=== PATIENT | female | born 1930 | race Caucasian/White ===

== ENCOUNTER 2016-11-20 08:21 | Emergency (ER) | payer MEDICARE ==
[~2016-11-20] VITALS: Ht 149.9 cm; Wt 68.7 kg
[~2016-11-20 08:21] MED LIST: ACET325T21 PO; ASPI-496 PO; BRIM5DRO3 EACHEYE; ESCI20TA10 PO; HYDR25TA6 PO; LEVO25TA4 PO; PARO20TA4 PO; TIMO5DRO5 EACHEYE
[2016-11-20] MEDS ORDERED: SODIUM CHLORIDE FLUSH 10ML SYR IVF ONE (09:00)
[2016-11-20] MEDS ORDERED: SODIUM CHLORIDE 0.9% 1,000ML IVBOLUS ONE (09:00)
[2016-11-20 09:28] LABS: BLOOD UREA NITROGEN 13 mg/dL (7-18)
[2016-11-20 10:42] VITALS: BP 134/58
== END 2016-11-20 10:45 | disposition home or self-care (01) ==
LOC: ED 10:30
DX: J06.9 Acute upper respiratory infection, unspecified (principal); E03.9 Hypothyroidism, unspecified; E87.6 Hypokalemia; I10 Essential (primary) hypertension; Z95.0 Presence of cardiac pacemaker; Z88.6 Allergy status to analgesic agent
CPT/HCPCS: 36415; 71020; 80048; 82040; 83605; 85025; 87040; 93005; 96360; 99285; J7030

== ENCOUNTER → 2016-12-02 | Outpatient (CLI) | payer MEDICARE | END | disposition home or self-care (01) | LOC: LAB 13:17 | PROVIDERS: ATTEND Ophthalmology | DX: H47.012 Ischemic optic neuropathy, left eye (principal) | CPT/HCPCS: 36415; 85651; 86140 ==

== ENCOUNTER 2017-05-09 16:38 | Inpatient (IN) | payer MEDICARE ==
[~2017-05-09] VITALS: Ht 152.4 cm; Wt 70.9 kg
[2017-05-09] MEDS ORDERED: SODIUM CHLORIDE 0.9% 1,000ML IVBOLUS ONE (17:30)
[2017-05-09] MEDS ORDERED: SODIUM CHLORIDE FLUSH 10ML SYR IVF ONE (17:30)
[2017-05-09] MEDS ORDERED: PLEASE ENTER HEIGHT AND WEIGHT MC SCH (18:00)
[2017-05-09 18:18] LABS: HEMATOCRIT 40.3 % (34.6-47.8); HEMOGLOBIN 13.5 g/dL (11.7-16.4)
[2017-05-09 18:26] LABS: ASPARTATE AMINO TRANSFERASE 16 U/L (15-37); BLOOD UREA NITROGEN 24 mg/dL (7-18)
[2017-05-09 18:32] LABS: IS PT STATUS REG ER OR PRE ER? YES
[2017-05-09] MEDS ORDERED: LISI1TAB3 PO (19:05)
[2017-05-09] MEDS ORDERED: LATA2.5D3 EACHEYE (19:15)
[2017-05-09] MEDS ORDERED: POTA10CA PO (19:15)
[2017-05-09] MEDS ORDERED: ATOR40TA78 PO (19:15)
[2017-05-09] MEDS ORDERED: CYAN25009 PO (19:15)
[2017-05-09] MEDS ORDERED: CHOL2000 PO (19:15)
[2017-05-09] MEDS ORDERED: LOSA1TAB19 PO (19:15)
[2017-05-09] MEDS ORDERED: FURO20TA3 PO (19:15)
[2017-05-09] MEDS ORDERED: BRIN8DRO EACHEYE (19:15)
[2017-05-09] MEDS: SODIUM CHLORIDE 0.9% 1,000 ML IV SCH (19:20)
[2017-05-09] MEDS ORDERED: TEMAZEPAM 15 MG CAPSULE PO PRN (19:30)
[2017-05-09] MEDS ORDERED: ENOXAPARIN 40 MG/0.4 ML SQ SCH (19:30)
[2017-05-09] MEDS ORDERED: DOCUSATE 100 MG CAPSULE PO PRN (19:30)
[2017-05-09] MEDS ORDERED: hydrALAzine 20 MG/ML, 1ML IVPush PRN (19:30)
[2017-05-09] MEDS ORDERED: ENOXAPARIN 40 MG/0.4 ML ONE (20:34)
[2017-05-09] MEDS: ATORVASTATIN 40 MG TABLET PO SCH (21:00)
[2017-05-09] MEDS: BRIMONIDINE TARTRATE OPHTH 0.15%, 5ML EACHEYE SCH (21:00)
[2017-05-09] MEDS: LATANOPROST OPHTH 0.005%, 2.5ML EACHEYE SCH (21:00)
[2017-05-09 23:00] VITALS: BP 115/57
[2017-05-10 00:58] LABS: IS PT STATUS REG ER OR PRE ER? NO
[2017-05-10 03:58] VITALS: BP 109/65
[2017-05-10 06:27] LABS: HEMATOCRIT 36.2 % (34.6-47.8); HEMOGLOBIN 11.8 g/dL (11.7-16.4); WHITE BLOOD COUNT 7.4 x10^3/uL (3.4-10)
[2017-05-10 06:32] LABS: BLOOD UREA NITROGEN 19 mg/dL (7-18)
[2017-05-10 06:42] LABS: IS PT STATUS REG ER OR PRE ER? NO
[2017-05-10 06:54] VITALS: BP_SYST 119; BP_SYST 125; BP_DIAS 66; BP_DIAS 69; BP_DIAS 71
[2017-05-10] MEDS ORDERED: POTASSIUM CHLORIDE 20 MEQ TAB.ER.PRT PO ONE (07:05)
[2017-05-10] MEDS ORDERED: LOSARTAN 50MG TABLET PO SCH (09:00)
[2017-05-10] MEDS: LEVOTHYROXINE 25 MCG TABLET PO SCH (09:41)
[2017-05-10] MEDS: HYDROCHLOROTHIAZIDE 12.5 MG CAPSULE PO SCH (09:42)
[2017-05-10] MEDS: ASPIRIN 81 MG TABLET EC PO SCH (09:42)
[2017-05-10] MEDS: BRIMONIDINE TARTRATE OPHTH 0.15%, 5ML EACHEYE SCH ×2 (09:43→21:01)
[2017-05-10] MEDS ORDERED: OMNIPAQUE 350 MG/ML, 100ML BOTTLE ONE (11:25)
[2017-05-10 13:54] VITALS: BP 126/65
[2017-05-10 15:30] VITALS: BP_SYST 129; BP_SYST 133; BP_DIAS 68; BP_DIAS 69
[2017-05-10] MEDS: SODIUM CHLORIDE 0.9% 1,000 ML IV SCH (16:27)
[2017-05-10 19:00] VITALS: BP 138/64
[2017-05-10] MEDS ORDERED: ENOXAPARIN 30 MG/0.3 ML SQ SCH (19:30)
[2017-05-10 20:00] VITALS: BP_SYST 135; BP_SYST 154; BP_DIAS 63; BP_DIAS 65
[2017-05-10] MEDS: ATORVASTATIN 40 MG TABLET PO SCH (21:01)
[2017-05-10] MEDS: LATANOPROST OPHTH 0.005%, 2.5ML EACHEYE SCH (21:01)
[2017-05-11 02:00] VITALS: BP 124/59
[2017-05-11] MEDS: SODIUM CHLORIDE 0.9% 1,000 ML IV SCH (05:20)
[2017-05-11] MEDS: LEVOTHYROXINE 25 MCG TABLET PO SCH (05:32)
[2017-05-11 07:58] VITALS: BP 167/64
[2017-05-11] MEDS: HYDROCHLOROTHIAZIDE 12.5 MG CAPSULE PO SCH (08:49)
[2017-05-11] MEDS: ASPIRIN 81 MG TABLET EC PO SCH (08:49)
[2017-05-11] MEDS: BRIMONIDINE TARTRATE OPHTH 0.15%, 5ML EACHEYE SCH (08:49)
[2017-05-11] MEDS ORDERED: LOSARTAN 50MG TABLET PO SCH (09:00)
[2017-05-11 12:35] VITALS: BP 111/65
== END 2017-05-11 14:21 | disposition home or self-care (01) | DRG 73 ==
LOC: ED 19:20 → EDIP 19:21 → ED 19:35 → 4WST 23:01 → DCLOUNGE 05-11 13:49
PROVIDERS: ADMIT Surgery; ATTEND Surgery
PROC: 4B02XSZ Measurement of Cardiac Pacemaker, External Approach (ICD-10-PCS; principal; 2017-05-10)
DX: G90.9 Disorder of the autonomic nervous system, unspecified (principal); N17.0 Acute kidney failure with tubular necrosis; I11.0 Hypertensive heart disease with heart failure; I48.91 Unspecified atrial fibrillation; R55 Syncope and collapse; F33.0 Major depressive disorder, recurrent, mild; E03.9 Hypothyroidism, unspecified; E78.5 Hyperlipidemia, unspecified; H40.9 Unspecified glaucoma; Z96.651 Presence of right artificial knee joint; E87.6 Hypokalemia; F41.9 Anxiety disorder, unspecified; F03.90 Unspecified dementia, unspecified severity, without behavioral disturbance, psychotic disturbance, mood disturbance, and anxiety; M81.0 Age-related osteoporosis without current pathological fracture; Z80.49 Family history of malignant neoplasm of other genital organs; Z82.3 Family history of stroke; Z86.73 Personal history of transient ischemic attack (TIA), and cerebral infarction without residual deficits; Z95.0 Presence of cardiac pacemaker; Z88.1 Allergy status to other antibiotic agents; Z88.5 Allergy status to narcotic agent; Z90.49 Acquired absence of other specified parts of digestive tract
CPT/HCPCS: 36415; 70450; 71010; 71275; 80048; 80053; 81001; 82607; 82746; 83735; 83880; 84439; 84443; 84484; 85025; 85379; 87086; 93005; 93306; 96360; 96361; 96372; J1650; Q9967; J7030

== ENCOUNTER 2018-03-24 14:46 | Emergency (ER) | payer MEDICARE ==
[~2018-03-24] VITALS: Ht 152.4 cm; Wt 65.8 kg
[~2018-03-24 14:46] MED LIST changes: +ATOR40TA78 PO; +BRIN8DRO EACHEYE; +CHOL2000 PO; +CYAN25009 PO; +FURO20TA3 PO; +LATA2.5D3 EACHEYE; +LISI1TAB3 PO; +LOSA1TAB19 PO; +POTA10CA PO
[2018-03-24 14:52] VITALS: BP 103/56
[2018-03-24 15:23] LABS: BASOPHILS # (AUTO) 0.11 x10^3/uL (0-0.1); BASOPHILS % (AUTO) 1 % (0-1); EOSINOPHILS # (AUTO) 0.58 x10^3/uL (0-0.4); EOSINOPHILS % (AUTO) 5 % (1-7); LYMPHOCYTES # (AUTO) 2.14 x10^3/uL (1-3.4); LYMPHOCYTES % (AUTO) 20 % (22-44); MD NO; MEAN CORPUSCULAR HEMOGLOBIN 31.2 pg (27.0-34.8); MEAN CORPUSCULAR HGB CONC 33.9 g/dL (32.4-35.8); MEAN CORPUSCULAR VOLUME 92.1 fL (80-100); MEAN PLATELET VOLUME 8.9 fL (7.4-10.4); MONOCYTES # (AUTO) 0.81 x10^3/uL (0.2-0.8); MONOCYTES % (AUTO) 8 % (2-9); NEUTROPHILS # (AUTO) 7.09 x10^3/uL (1.8-6.8); NEUTROPHILS % (AUTO) 66 % (42-75); PLATELET COUNT 273 x10^3/uL (130-400); RED BLOOD COUNT 4.68 x10^6/uL (3.82-5.3); RED CELL DISTRIBUTION WIDTH 14.5 % (9.6-15.2)
[2018-03-24 15:32] LABS: ALBUMIN 3.4 g/dL (3.4-5.0); ANION GAP 10 mmol/L (5-15); CHLORIDE 109 mmol/L (98-107)
[2018-03-24 15:37] LABS: CREATININE 1.25 mg/dL (0.55-1.02); TROPONIN I < 0.015 ng/mL (0.000-0.045)
== END 2018-03-24 16:40 | disposition home or self-care (01) ==
LOC: ED 15:45
DX: J00 Acute nasopharyngitis [common cold] (principal); I11.0 Hypertensive heart disease with heart failure; I50.9 Heart failure, unspecified; I48.91 Unspecified atrial fibrillation; E07.9 Disorder of thyroid, unspecified; R05 Cough; Z95.0 Presence of cardiac pacemaker
CPT/HCPCS: 36415; 71046; 80048; 82040; 83605; 83880; 84484; 85025; 87040; 93005; 99285

== ENCOUNTER 2018-05-24 13:00 | Emergency (ER) | payer MEDICARE ==
[~2018-05-24] VITALS: Ht 144.8 cm; Wt 65.5 kg
[2018-05-24 14:34] LABS: ALBUMIN 3.5 g/dL (3.4-5.0); ANION GAP 9 mmol/L (5-15); CALCIUM 8.7 mg/dL (8.5-10.1); CHLORIDE 105 mmol/L (98-107); CREATININE 1.28 mg/dL (0.55-1.02)
[2018-05-24 14:38] LABS: TROPONIN I < 0.015 ng/mL (0.000-0.045)
[2018-05-24 14:47] LABS: MEAN CORPUSCULAR HEMOGLOBIN 30.7 pg (27.0-34.8); MEAN CORPUSCULAR HGB CONC 33.2 g/dL (32.4-35.8); MEAN CORPUSCULAR VOLUME 92.4 fL (80-100); MEAN PLATELET VOLUME 9.3 fL (7.4-10.4); PLATELET COUNT 217 x10^3/uL (130-400); RED BLOOD COUNT 4.78 x10^6/uL (3.82-5.3); RED CELL DISTRIBUTION WIDTH 14.1 % (9.6-15.2)
[2018-05-24 15:04] LABS: MD SCAN
[2018-05-24 15:06] LABS: BASOPHILS % (AUTO) 1 % (0-1); EOSINOPHILS % (AUTO) 4 % (1-7); LYMPHOCYTES # (AUTO) 2.27 x10^3/uL (1-3.4); LYMPHOCYTES % (AUTO) 19 % (22-44); MONOCYTES % (AUTO) 7 % (2-9); NEUTROPHILS # (AUTO) 7.94 x10^3/uL (1.8-6.8); NEUTROPHILS % (AUTO) 68 % (42-75)
[2018-05-24 15:07] LABS: BASOPHILS # (AUTO) 0.16 x10^3/uL (0-0.1); EOSINOPHILS # (AUTO) 0.51 x10^3/uL (0-0.4); MONOCYTES # (AUTO) 0.87 x10^3/uL (0.2-0.8)
--- NOTE | 2018-05-24 15:23 | NUR ---
Pt to rm [facility] from [facility]
--- NOTE | 2018-05-24 15:43 | NUR ---
FIRST CONTACT WITH PT. PT SITTING ON ALEX. GOLDY. PT AOX4, HAS UNLABORED RESPIRATIONS EQUAL BILATERALLY. PT STATES, "EARLIER THIS MORNING I HAD CHEST PAIN THAT FELT DULL RIGHT IN THE CENTER OF MY CHEST. IT LASTED FOR 10 MINUTES. MAYBE IT WAS GAS. I FEEL FINE NOW. I DIDN'T FEEL ANYTHING BEFORE OR AFTER IT." PT DENIES N/V/D, SOB, CP AT THIS TIME, RADIATION OF CP DURING EPISODE. PT IS CONNECTED TO ALL MONITORS AND PROVIDED WARM BLANKETS FOR COMFORT MEASURES. PT'S DAUGHTER AT BEDSIDE. PT'S DAUGHTER STATES, "SHE HAD PAIN OVER HER PACEMAKER AND AND ON HER LEFT SIDE OF HER CHEST. IT LASTED FOR TWENTY MINUTES."
--- NOTE | 2018-05-24 16:36 | NUR ---
PT RESTING ON GURNEY WITH ALL SAFETY MEASURES IN PLACE AND CALL LIGHT WITHIN REACH. PT'S DAUGHTER AT BEDSIDE, PINKY. PT'S DAUGHTER STATES SHE IS POA FOR PT AND THAT THEY LIVE TOGETHER. PT HAS HISTORY OF DEMENTIA. PT AND DAUGHTER INTERACTING PLAYFULLY AND JOKING WITH EACHOTHER. RICHARDN. NO NEEDS EXPRESSED AT THIS TIME. WAITING LAB RESULTS.
[2018-05-24] MEDS ORDERED: SPIR1TAB3 PO (16:41)
[2018-05-24 17:59] LABS: TROPONIN I < 0.015 ng/mL (0.000-0.045)
--- NOTE | 2018-05-24 18:35 | NUR ---
PT RESTING ON GURNEY DAUGHTER AT BEDSIDE. PT'S DAUGHTER STATES, "I GOT HER LEMON CAKE AND SOME WATER." NADN. NO NEEDS EXPRESSED AT THIS TIME.
--- NOTE | 2018-05-24 18:51 | NUR ---
PROVIDED REPORT TO FARZANEH RECINOS. ALL QUESTIONS ANSWERED.
[2018-05-24 18:57] VITALS: BP 112/46
== END 2018-05-24 19:00 | disposition home or self-care (01) ==
LOC: ED 15:40
DX: R07.89 Other chest pain (principal); H61.21 Impacted cerumen, right ear; I10 Essential (primary) hypertension; E78.5 Hyperlipidemia, unspecified; I48.91 Unspecified atrial fibrillation; F32.9 Major depressive disorder, single episode, unspecified; F41.9 Anxiety disorder, unspecified; E03.9 Hypothyroidism, unspecified; Z95.5 Presence of coronary angioplasty implant and graft; Z88.5 Allergy status to narcotic agent; Z88.6 Allergy status to analgesic agent
CPT/HCPCS: 36415; 71046; 80048; 82040; 83880; 84484; 85025; 93005; 99284